=== PATIENT | male | born 1965 | race Caucasian/White ===

== ENCOUNTER 2016-11-06 19:56 | Emergency (ER) | payer MEDICARE, OTHER ==
[~2016-11-06 19:56] MED LIST: PATIENT'S OWN MEDICATION PO; depakote PO
--- NOTE | 2016-11-06 20:48 | DIAGNOSTIC IMAGING REPORT ---
PROCEDURE: XR ANKLE 3 OR 4 VIEWS - RIGHT INDICATION: TRAUMA/INJURY TECHNIQUE: Four views. COMPARISON: None. FINDINGS: There is marked soft tissue swelling over the lateral malleolus. There is a 5 mm old avulsion fracture of the medial malleolus. The rest of the osseous structures and joint spaces are normal. IMPRESSION: 1. Marked soft tissue swelling/injury over the lateral malleolus. 2. Otherwise negative right ankle.
--- NOTE | 2016-11-06 21:51 | ED NURSING NOTES ---
Clinical Report - Nurses [address] [place] [address] 11/06/2016 19:57 [id number] Triage time 19:59. Acuity: LEVEL 4. Chief Complaint: INJURY TO RIGHT ANKLE. Alert. HANNAH COMA SCORE: Hannah Coma Scale: 15- eyes open spontaneously (4); best verbal response- oriented x 4 (5); best motor response- obeys commands (6). --20:05 Jean Arguelles R.N. 19:59 11/06/16. BP: 105/70. HR: 70. RR: 18 (regular and unlabored). O2 saturation: 100% on room air. Temp: 97.8 F. Collins-Corrigan pain scale: 4/10. --20:05 Jean Arguelles R.N. Weight: 90.7 kg estimated. Height/Length: 70 inches Estimated. BMI: 28.7. --20:08 Jean Arguelles R.N. Medications Acetaminophen Oral 325 mg, as needed. Alendronate Sodium Oral (Tablet 35 mg), weekly. ASA Oral 81 mg, daily. B-12 Microlozenge Sublingual 5000 mcg, daily. Calcium Chew 500 mg, 4x a day. ClonazePAM Oral 0.5 mg, daily (may have prn seizures activity). --20:00 Jean Arguelles R.N. Divalproex Sodium Oral (Tablet Delayed Release 125 mg) 2 tablets, daily. Keppra Oral 500 mg, daily (5 tabs). L-methylfolate Calcium Oral (Tablet 7.5 mg), daily. Lactase Fast Acting Oral (Tablet 9000 unit), with dairy. LaMICtal Oral (Tablet 100 mg) 2 tablets, daily. Loratadine Oral 10 mg, daily. Mapap Oral (Tablet 325 mg), as needed. Metamucil Oral fiber wafers 2, daily. Onfi Oral (Tablet 10 mg) 30 mg, bid. Oyster Shell Calcium Oral (Tablet 500 mg), tid. Vitamin D Oral (Tablet 1000 unit) 2 tablets, daily. Vitamins/Minerals Oral, daily. --20:00 Jean Arguelles R.N. Medication/allergy information source: other (Medication list from previous visit--no other source availible at time of triage, patient poor historian). --20:05 Jean Arguelles R.N. Allergies No Known Drug Allergy. --20:00 Jean Arguelles R.N. History Arrived by EMS. Historian: (EMS and PT). Unaccompanied. This occurred just prior to arrival. Occurred at home. Mechanism of injury: sustained a twisting injury. SOCIAL HX: Smoker - current status unknown. ( Patient answers questions intermittently, EMS states that patient is at baseline mental status per the patient's applied behavior specialist at scene of incident, with a developmental delay). --20:05 Jean Arguelles R.N. FALL RISK ASSESSMENT: Fall risk assessment completed. Risk factors identified include patient history of fall and impairment of cognition. Fall interventions initiated. Patient placed on stretcher. Side rails up x2. Brakes on Bed in low position. Patient identified as a fall risk by ID band. Call light in reach of patient. Instructed not to get up without assistance. FUNCTIONAL ASSESSMENT: Functional assessment performed: requires assistance with the activities of daily living. LEARNING NEEDS ASSESSMENT: A learning needs assessment was performed. Factors affecting the patient's ability to learn include cognitive limitations. --20:06 Jean Arguelles R.N. PROBLEMS: Anemia. Changed Mental Status. Seizure Disorder. Seizure. Abrasion(s). Head Injury. Osteoporosis. Developmental Delay. Epilepsy. --20:01 Jean Arguelles R.N. ADDITIONAL SURGERIES: Vagus nerve stimulator -implant . --20:01 Jean Arguelles R.N. Interventions ID band on patient. To treatment room. --20:05 Jean Arguelles R.N. PHYSICAL ASSESSMENT GENERAL / NEURO / PSYCH: Alert. ( Patient is oriented to situation and person, and states that he is in "[facility]."). EXTREMITIES: Right ankle: swelling and erythema. --20:07 Jean Arguelles R.N. GENERAL / NEURO / PSYCH: ( pt denies having other injuries). --20:07 Jean Arguelles R.N. NURSING PROGRESS NOTES Reassurance given. Two patient identifiers checked. Call light placed in reach. Side rails up x 2. Bed placed in lowest position. Brakes of bed on. Patient ready for evaluation- chart flagged. Patient waiting for evaluation. --20:08 Jean Arguelles R.N. ( Ice pack applied to patient's right ankle). --20:17 Jean Arguelles R.N. ( At time of triage, EMS stated that the patient's "caregiver is on her way."). --20:18 eJan Arguelles R.N. 22:08 11/06/2016 Hydrocodone-APAP (Hydrocodone-Acetaminophen) PO 5/325 mg Tablets 1 tab given. Allergies verified, confirmed 5 rights and sedative warning given to the patient and patient's congressional aide. --22:18 Jean Arguelles R.N. DISPOSITION / DISCHARGE Departure time: 22:19. Condition at departure: stable. Learning barriers present. Ability to learn limited by poor comprehension. Discharge instructions provided and reviewed with the caregiver and patient. Reviewed warnings. Reviewed medication(s) side effects, precautions, dosing and course information. Prescription(s) given to the applied behavior specialist. Treatments reviewed. Reviewed referrals for followup. Patient verbalized understanding. Written instructions provided in Indonesian. Caregiver verbalized understanding. The patient was discharged home and accompanied by applied behavior specialist. He left the Emergency Department in a wheelchair and via private vehicle. Driving (applied behavior specialist). --22:20 Jean Arguelles R.N. 22:18 11/06/16. HR: 68. RR: 17. O2 saturation: 95% on room air. Pain level now: 0/10. --22:20 Jean Arguelles R.N. ( acewrap applied to right ankle of patient prior to discharge). --22:20 Jean Arguelles R.N. Locked/Released at 11/06/2016 22:21 by Jean Arguelles R.N.
--- NOTE | 2016-11-06 21:51 | ED CLINICAL REPORT ---
Clinical Report - Physicians/Mid Levels [facility] [address] [place] [address] 11/06/2016 19:57 Patient: JORGE LUIS BENJAMIN Time Seen: 20:23; initial patient contact, initial documentation, patient care assumed. Arrived- By ambulance. Historian- patient. History limited by poor comprehension. HISTORY OF PRESENT ILLNESS Chief Complaint: Injury to the right ankle. The injury happened just prior to arrival. The patient sustained a twisting injury. Occurred at home. Patient is experiencing moderate pain. Patient denies injury to the head or neck. No other injury. REVIEW OF SYSTEMS The patient complains of pain on weight bearing. He has had swelling. No tingling, weakness, numbness or skin laceration. All systems otherwise negative, except as recorded above. PAST HISTORY See nurses notes. PROBLEMS: Anemia. Changed Mental Status. Seizure Disorder. Seizure. Abrasion(s). Head Injury. Osteoporosis. Developmental Delay. Epilepsy. --20:01 Jean Arguelles R.N. ADDITIONAL SURGERIES: Vagus nerve stimulator -implant . --20:01 Jean Arguelles R.N. SOCIAL HISTORY Never smoker. No alcohol use or drug use. No recent travel. Is a local resident. He lives with a caregiver. FAMILY HISTORY No significant family medical history. ADDITIONAL NOTES The nursing notes have been reviewed with agreement regarding the chief complaint, HPI, ROS, PMH and patient medications and allergies. PHYSICAL EXAM Vital Signs: 11/06/2016 19:59 BP: 105/70. HR: 70. RR: 18. O2 saturation: 100%. Temp: 97.8 F. Collins-Corrigan pain scale: 4/10. Have been reviewed as normal and appear to be correct. Appearance: Alert. Oriented X3. No acute distress. (pt at his baseline mentally, words slurred but does answer appropriately). Head: Head atraumatic. Eyes: Pupils equal, round and reactive to light. Eyes normal inspection. Neck: Normal inspection. Neck supple. C-spine non-tender. Respiratory: No respiratory distress. Skin: Skin intact. Skin warm and dry. Extremities: Ankle injury present. Right lateral ankle: moderate tenderness and swelling and small ecchymosis of the lateral malleolus. Limited ROM secondary to pain (diminished plantar flexion, dorsiflexion, inversion and eversion). Neurovascular intact distally. No ligamentous laxity present. No joint effusion. No erythema, laceration, abrasion, puncture wound or foreign body. No deformity. No foot injury. Foot and ankle exam otherwise negative. Extremities otherwise negative. Neuro, Vascular and Tendons: Vascular status intact. Sensation intact. Motor intact. Tendon function intact. Gait: Abnormal gait. Gait not tested due to pain. Neuro: Oriented X 3. No motor deficit. No sensory deficit. Note: isolated injury to ankle. LABS, X-RAYS, AND EKG X-Rays: Right ankle negative. Rt Ankle X-ray: (IMPRESSION: 1. Marked soft tissue swelling/injury over the lateral malleolus. 2. Otherwise negative right ankle. Electronically Final signed by:Shivam Barrera MD 11/06/2016 8:45:29 PM). The X-rays were interpreted by the radiologist and contemporaneously by me and discussed with the radiologist. PROGRESS AND PROCEDURES Course of Care: 2124. ankle reassessed, less swelling than on initial exam. Patient counseled in person regarding the patient's stable condition, test results and diagnosis. 21:24. Differential Diagnosis: Other possible considerations: ankle fx vs sprain. Above considerations are based on history, physical exam, reassessment and X-Ray data. Differential diagnosis was discussed with patient. Disposition: Discharged home in good and improved condition (21:50). Condition: good and stable. CLINICAL IMPRESSION Sprain of the tibiofibular ligament of the right ankle. INSTRUCTIONS Apply ice for 20 minutes four times a day for two days until better. Don't apply ice directly to skin. Wear elastic wrap (Gilmer wrap) as directed for one weeks until better. Elevate affected areas above chest level for two days until better. Warnings: GENERAL WARNINGS: Return or contact your physician immediately if your condition worsens or changes unexpectedly, if not improving as expected, or if other problems arise. Specifically return if problem worsens. Prescription Medications: Ultram 50 mg tablets: take 1-2 orally every 6 hours as needed for pain. Dispense twenty (20). No refills. Substitution is permissible. Follow-up: Follow up with your doctor in about one week even if well. Call for an appointment. Summary of care provided to patient and family. Understanding of the discharge instructions verbalized by patient and family. (Electronically signed by Eleanor Canchola A.R.N.P. 11/07/2016 12:58)
--- NOTE | 2016-11-06 21:51 | ED ORDER SUMMARY ---
..... Patient: JORGE LUIS BENJAMIN OrderSheet [facility] VisitID: [id number] [address] [place] [address] 51y, M Registration Date/Time: 11/06/2016 ORDER SHEET Weight: 90.7 kg (estimated) Allergies: No Known Drug Allergy GENERAL ORDERS: Ankle 3 or 4V Right Urgent (20:28 11/06/2016 HBivens A.R.N.P.) (Ack 20:33 IJurca ER Tech1) (20:39 IJurca ER Tech1) Gilmer Wrap (21:50 11/06/2016 HBivens A.R.N.P.) (Ack 21:56 DDavis R.N.) (22:18 DDavis R.N.) MEDICATION ORDERS: Hydrocodone-APAP PO 5/325 mg (NOW, HIGH ALERT MEDICATION) (21:50 11/06/2016 HBivens A.R.N.P.) (Ack 21:57 DDavis R.N.) (22:18 DDavis R.N.) IV FLUIDS: ORDER SHEET NOTES: [Electronically signed by Jean Arguelles R.N. (22:21 11/06/2016)] [Electronically signed by Eleanor CancholaRSharonN.PSharon (12:58 11/07/2016)] [Electronically locked/signed by Jean Arguelles R.N. (22:21 11/06/2016)]
--- NOTE | 2016-11-06 21:51 | ED ORDER SUMMARY ---
..... Patient: JORGE LUIS BENJAMIN OrderSheet [facility] VisitID: [id number] [address] [place] [address] 51y, M Registration Date/Time: 11/06/2016 ORDER SHEET Weight: 90.7 kg (estimated) Allergies: No Known Drug Allergy GENERAL ORDERS: Ankle 3 or 4V Right Urgent (20:28 11/06/2016 HBivens A.R.N.P.) (Ack 20:33 IJurca ER Tech1) (20:39 IJurca ER Tech1) Gilmer Wrap (21:50 11/06/2016 HBivens A.R.N.P.) (Ack 21:56 DDavis R.N.) (22:18 DDavis R.N.) MEDICATION ORDERS: Hydrocodone-APAP PO 5/325 mg (NOW, HIGH ALERT MEDICATION) (21:50 11/06/2016 HBivens A.R.N.P.) (Ack 21:57 DDavis R.N.) (22:18 DDavis R.N.) IV FLUIDS: ORDER SHEET NOTES: [Electronically signed by Jean Arguelles R.N. (22:21 11/06/2016)] [Electronically signed by Eleanor CancholaRSharonN.PSharon (12:58 11/07/2016)] [Electronically locked/signed by Jean Arguelles R.N. (22:21 11/06/2016)]
--- NOTE | 2016-11-06 21:51 | ED NURSING NOTES ---
Clinical Report - Nurses [facility] [address] [place] [address] 11/06/2016 19:57 [id number] Triage time 19:59. Acuity: LEVEL 4. Chief Complaint: INJURY TO RIGHT ANKLE. Alert. HANNAH COMA SCORE: Hannah Coma Scale: 15- eyes open spontaneously (4); best verbal response- oriented x 4 (5); best motor response- obeys commands (6). --20:05 Jean Arguelles R.N. 19:59 11/06/16. BP: 105/70. HR: 70. RR: 18 (regular and unlabored). O2 saturation: 100% on room air. Temp: 97.8 F. Collins-Corrigan pain scale: 4/10. --20:05 Jean Arguelles R.N. Weight: 90.7 kg estimated. Height/Length: 70 inches Estimated. BMI: 28.7. --20:08 Jean Arguelles R.N. Medications Acetaminophen Oral 325 mg, as needed. Alendronate Sodium Oral (Tablet 35 mg), weekly. ASA Oral 81 mg, daily. B-12 Microlozenge Sublingual 5000 mcg, daily. Calcium Chew 500 mg, 4x a day. ClonazePAM Oral 0.5 mg, daily (may have prn seizures activity). --20:00 Jean Arguelles R.N. Divalproex Sodium Oral (Tablet Delayed Release 125 mg) 2 tablets, daily. Keppra Oral 500 mg, daily (5 tabs). L-methylfolate Calcium Oral (Tablet 7.5 mg), daily. Lactase Fast Acting Oral (Tablet 9000 unit), with dairy. LaMICtal Oral (Tablet 100 mg) 2 tablets, daily. Loratadine Oral 10 mg, daily. Mapap Oral (Tablet 325 mg), as needed. Metamucil Oral fiber wafers 2, daily. Onfi Oral (Tablet 10 mg) 30 mg, bid. Oyster Shell Calcium Oral (Tablet 500 mg), tid. Vitamin D Oral (Tablet 1000 unit) 2 tablets, daily. Vitamins/Minerals Oral, daily. --20:00 Jean Arguelles R.N. Medication/allergy information source: other (Medication list from previous visit--no other source availible at time of triage, patient poor historian). --20:05 Jean Arguelles R.N. Allergies No Known Drug Allergy. --20:00 Jean Arguelles R.N. History Arrived by EMS. Historian: (EMS and PT). Unaccompanied. This occurred just prior to arrival. Occurred at home. Mechanism of injury: sustained a twisting injury. SOCIAL HX: Smoker - current status unknown. ( Patient answers questions intermittently, EMS states that patient is at baseline mental status per the patient's hot saw helper at scene of incident, with a developmental delay). --20:05 Jean Arguelles R.N. FALL RISK ASSESSMENT: Fall risk assessment completed. Risk factors identified include patient history of fall and impairment of cognition. Fall interventions initiated. Patient placed on stretcher. Side rails up x2. Brakes on Bed in low position. Patient identified as a fall risk by ID band. Call light in reach of patient. Instructed not to get up without assistance. FUNCTIONAL ASSESSMENT: Functional assessment performed: requires assistance with the activities of daily living. LEARNING NEEDS ASSESSMENT: A learning needs assessment was performed. Factors affecting the patient's ability to learn include cognitive limitations. --20:06 Jean Arguelles R.N. PROBLEMS: Anemia. Changed Mental Status. Seizure Disorder. Seizure. Abrasion(s). Head Injury. Osteoporosis. Developmental Delay. Epilepsy. --20:01 Jean Arguelles R.N. ADDITIONAL SURGERIES: Vagus nerve stimulator -implant . --20:01 Jean Arguelles R.N. Interventions ID band on patient. To treatment room. --20:05 Jean Arguelles R.N. PHYSICAL ASSESSMENT GENERAL / NEURO / PSYCH: Alert. ( Patient is oriented to situation and person, and states that he is in "[facility]."). EXTREMITIES: Right ankle: swelling and erythema. --20:07 Jean Arguelles R.N. GENERAL / NEURO / PSYCH: ( pt denies having other injuries). --20:07 Jean Arguelles R.N. NURSING PROGRESS NOTES Reassurance given. Two patient identifiers checked. Call light placed in reach. Side rails up x 2. Bed placed in lowest position. Brakes of bed on. Patient ready for evaluation- chart flagged. Patient waiting for evaluation. --20:08 Jean Arguelles R.N. ( Ice pack applied to patient's right ankle). --20:17 Jean Arguelles R.N. ( At time of triage, EMS stated that the patient's "caregiver is on her way."). --20:18 Jean Arguelles R.N. 22:08 11/06/2016 Hydrocodone-APAP (Hydrocodone-Acetaminophen) PO 5/325 mg Tablets 1 tab given. Allergies verified, confirmed 5 rights and sedative warning given to the patient and patient's fund accountant. --22:18 Jean Arguelles R.N. DISPOSITION / DISCHARGE Departure time: 22:19. Condition at departure: stable. Learning barriers present. Ability to learn limited by poor comprehension. Discharge instructions provided and reviewed with the caregiver and patient. Reviewed warnings. Reviewed medication(s) side effects, precautions, dosing and course information. Prescription(s) given to the hot saw helper. Treatments reviewed. Reviewed referrals for followup. Patient verbalized understanding. Written instructions provided in Indonesian. Caregiver verbalized understanding. The patient was discharged home and accompanied by hot saw helper. He left the Emergency Department in a wheelchair and via private vehicle. Driving (hot saw helper). --22:20 Jean Arguelles R.N. 22:18 11/06/16. HR: 68. RR: 17. O2 saturation: 95% on room air. Pain level now: 0/10. --22:20 Jean Arguelles R.N. ( acewrap applied to right ankle of patient prior to discharge). --22:20 Jean Arguelles R.N. Locked/Released at 11/06/2016 22:21 by Jean Arguelles R.N.
--- NOTE | 2016-11-07 12:59 | ED DISCHARGE INSTRUCTIONS ---
Patient: JORGE LUIS BENJAMIN General Instructions [facility] VisitID: [id number] [address] [place] [address] 51y, M Registration Date/Time: 11/06/2016 Sprain of the tibiofibular ligament of the right ankle. INSTRUCTIONS Apply ice for 20 minutes four times a day for two days until better. Don't apply ice directly to skin. Wear elastic wrap (Gilmer wrap) as directed for one weeks until better. Elevate affected areas above chest level for two days until better. Warnings: GENERAL WARNINGS: Return or contact your physician immediately if your condition worsens or changes unexpectedly, if not improving as expected, or if other problems arise. Specifically return if problem worsens. Prescription Medications: Ultram 50 mg tablets: take 1-2 orally every 6 hours as needed for pain. Dispense twenty (20). No refills. Substitution is permissible. Follow-up: Follow up with your doctor in about one week even if well. Call for an appointment. Summary of care provided to patient and family. Understanding of the discharge instructions verbalized by patient and family. ADDITIONAL INFORMATION Sprain, Ankle,With X-Ray A sprain is an injury to the ligaments or capsule that holds a joint together. There are no broken bones. Most sprains take from four to six weeks to heal. If the ligament is completely torn (severe sprain), it can take several months to recover. Mild to moderate sprains may be treated with an elastic wrap or an in-shoe splint to provide support and prevent re-injury. A mild sprain may not require any additional support. A severe sprain may require surgery to repair. Home care The following guidelines will help you care for your injury at home: Stay off the injured leg as much as possible until you can walk on it without pain. If you have a lot of pain with walking, crutches or a walker may be prescribed. (These can be rented or purchased at many pharmacies and surgical or orthopedic supply stores). Follow your doctor's advice regarding when to begin bearing weight on that leg. Keep your leg elevated to reduce pain and swelling. When sleeping, place a pillow under the injured leg. When sitting, support the injured leg so it is level with your waist. This is very important during the first 48 hours. Apply an ice pack (ice cubes in a plastic bag, wrapped in a towel) over the injured area for 20 minutes every 12 hours the first day. You can place the ice pack directly over the splint/cast. If you were given a boot, open it to apply the ice pack. Continue with ice packs 34 times a day for the next two days, then as needed for the relief of pain and swelling. You may use acetaminophen or ibuprofen to control pain, unless another pain medicine was prescribed. If you have chronic liver or kidney disease or ever had a stomach ulcer or GI bleeding, talk with your doctor before using these medicines. You may return to sports after healing, when you can run without pain. A sprained ankle is at risk for re-injury during the first six weeks. During that time, protect your ankle with an in-shoe splint that prevents tilting of your ankle from side to side. This is very important if you do active work or play sports during that time. Follow-up care Any X-rays you had today dont show any broken bones, breaks, or fractures. Sometimes fractures dont show up on the first X-ray. Bruises and sprains can sometimes hurt as much as a fracture. These injuries can take time to heal completely. If your symptoms dont improve or they get worse, talk with your doctor. You may need a repeat X-ray. When to seek medical care Get prompt medical attention if any of the following occur: The plaster cast or splint gets wet or soft The fiberglass cast or splint gets wet and does not dry for 24 hours Pain or swelling increases, or redness appears Toes become cold, blue, numb or tingly Re-injure your ankle Gilmer Wrap An "Gilmer Bandage" refers to any elastic bandage wrap (2-6" wide). This is used to apply support and compression to an arm or leg. It will help prevent or reduce swelling also. When applying the bandage, it should not be stretched too tightly. A tight Gilmer Wrap will reduce circulation and cause tingling or numbness in the hand or foot. It may increase the pain under the bandage. If you get these symptoms, remove the wrap and rest the limb. Symptoms should go away within 1-2 hours. Once symptoms go away, reapply the bandage with less stretch. If symptoms do not go away after 1-2 hours with the bandage off, call your doctor or return to this facility promptly. Tramadol Hydrochloride Oral tablet What is this medicine? TRAMADOL (TRA ma dole) is a pain reliever. It is used to treat moderate to severe pain in adults. How should I use this medicine? Take this medicine by mouth with a full glass of water. Follow the directions on the prescription label. If the medicine upsets your stomach, take it with food or milk. Do not take more medicine than you are told to take. Talk to your cross tie tram loader regarding the use of this medicine in children. Special care may be needed. What side effects may I notice from receiving this medicine? Side effects that you should report to your doctor or health technical healthcare consultant as soon as possible: allergic reactions like skin rash, itching or hives, swelling of the face, lips, or tongue breathing difficulties, wheezing confusion itching light headedness or fainting spells redness, blistering, peeling or loosening of the skin, including inside the mouth seizures Side effects that usually do not require medical attention (report to your doctor or health technical healthcare consultant if they continue or are bothersome): constipation dizziness drowsiness headache nausea, vomiting What may interact with this medicine? Do not take this medicine with any of the following medications: MAOIs like Carbex, Eldepryl, Marplan, Nardil, and Parnate This medicine may also interact with the following medications: alcohol or medicines that contain alcohol antihistamines benzodiazepines bupropion carbamazepine or oxcarbazepine clozapine cyclobenzaprine digoxin furazolidone linezolid medicines for depression, anxiety, or psychotic disturbances medicines for migraine headache like almotriptan, eletriptan, frovatriptan, naratriptan, rizatriptan, sumatriptan, zolmitriptan medicines for pain like pentazocine, buprenorphine, butorphanol, meperidine, nalbuphine, and propoxyphene medicines for sleep muscle relaxants naltrexone phenobarbital phenothiazines like perphenazine, thioridazine, chlorpromazine, mesoridazine, fluphenazine, prochlorperazine, promazine, and trifluoperazine procarbazine warfarin What if I miss a dose? If you miss a dose, take it as soon as you can. If it is almost time for your next dose, take only that dose. Do not take double or extra doses. Where should I keep my medicine? Keep out of the reach of children. Store at room temperature between 15 and 30 degrees C (59 and 86 degrees F). Keep container tightly closed. Throw away any unused medicine after the expiration date. What should I tell my health care provider before I take this medicine? They need to know if you have any of these conditions: brain tumor depression drug abuse or addiction head injury if you frequently drink alcohol containing drinks kidney disease or trouble passing urine liver disease lung disease, asthma, or breathing problems seizures or epilepsy suicidal thoughts, plans, or attempt; a previous suicide attempt by you or a family member an unusual or allergic reaction to tramadol, codeine, other medicines, foods, dyes, or preservatives or trying to get breast-feeding What should I watch for while using this medicine? Tell your doctor or health technical healthcare consultant if your pain does not go away, if it gets worse, or if you have new or a different type of pain. You may develop tolerance to the medicine. Tolerance means that you will need a higher dose of the medicine for pain relief. Tolerance is normal and is expected if you take this medicine for a long time. Do not suddenly stop taking your medicine because you may develop a severe reaction. Your body becomes used to the medicine. This does NOT mean you are addicted. Addiction is a behavior related to getting and using a drug for a non-medical reason. If you have pain, you have a medical reason to take pain medicine. Your doctor will tell you how much medicine to take. If your doctor wants you to stop the medicine, the dose will be slowly lowered over time to avoid any side effects. You may get drowsy or dizzy. Do not drive, use machinery, or do anything that needs mental alertness until you know how this medicine affects you. Do not stand or sit up quickly, especially if you are an older patient. This reduces the risk of dizzy or fainting spells. Alcohol can increase or decrease the effects of this medicine. Avoid alcoholic drinks. You may have constipation. Try to have a bowel movement at least every 2 to 3 days. If you do not have a bowel movement for 3 days, call your doctor or health technical healthcare consultant. Your mouth may get dry. Chewing sugarless gum or sucking hard candy, and drinking plenty of water may help. Contact your doctor if the problem does not go away or is severe. You have been given the following additional information: Sprain, Ankle, With X-Ray Gilmer Wrap Tramadol Hydrochloride Oral tablet (Electronically signed by Eleanor Canchola A.R.N.P. 11/07/2016 12:58)
--- NOTE | 2016-11-07 13:00 | ED MED RECONCILIATION SUMMARY ---
Patient: JORGE LUIS BENJAMIN Medication Reconciliation Report [facility] VisitID: [id number] [address] [place] [address] 51y, M Registration Date/Time: 11/06/2016 Weight: 90.7 kg Height/Length: 70 in. BMI: 28.7 ALLERGIES: No Known Drug Allergy The patient's Home Medications are listed below: THE FOLLOWING MEDICATIONS NEED TO BE RECONCILED: Acetaminophen Oral 325 mg Alendronate Sodium Oral (35 mg), weekly ASA Oral 81 mg, daily B-12 Microlozenge Sublingual 5000 mcg, daily Calcium Chew 500 mg, 4x a day ClonazePAM Oral 0.5 mg, daily, may have prn seizures activity Divalproex Sodium Oral (125 mg) 2 tablets, daily Keppra Oral 500 mg, daily, 5 tabs L-methylfolate Calcium Oral (7.5 mg), daily Lactase Fast Acting Oral (9000 unit), with dairy LaMICtal Oral (100 mg) 2 tablets, daily Loratadine Oral 10 mg, daily Mapap Oral (325 mg) Metamucil Oral fiber wafers 2, daily Onfi Oral (10 mg) 30 mg, bid Oyster Shell Calcium Oral (500 mg), tid Vitamin D Oral (1000 unit) 2 tablets, daily Vitamins/Minerals Oral, daily The source(s) of the original Home Medication information: other Medication list from previous visit--no other source availible at time of triage, patient poor historian The following Medications were given to the patient in the Emergency Department: Hydrocodone-APAP [PO] PO 1 tab, administered: 11/06/2016 10:08:00 PM The following Medications were prescribed to the patient: Ultram 50 mg tablets: take 1-2 orally every 6 hours as needed for pain. Dispense twenty (20). No refills. Substitution is permissible. -- Eleanor Canchola A.R.N.P.
--- NOTE | 2016-11-07 13:00 | ED MED RECONCILIATION SUMMARY ---
Patient: JORGE LUIS BENJAMIN Medication Reconciliation Report [facility] VisitID: [id number] [address] [place] [address] 51y, M Registration Date/Time: 11/06/2016 Weight: 90.7 kg Height/Length: 70 in. BMI: 28.7 ALLERGIES: No Known Drug Allergy The patient's Home Medications are listed below: THE FOLLOWING MEDICATIONS NEED TO BE RECONCILED: Acetaminophen Oral 325 mg Alendronate Sodium Oral (35 mg), weekly ASA Oral 81 mg, daily B-12 Microlozenge Sublingual 5000 mcg, daily Calcium Chew 500 mg, 4x a day ClonazePAM Oral 0.5 mg, daily, may have prn seizures activity Divalproex Sodium Oral (125 mg) 2 tablets, daily Keppra Oral 500 mg, daily, 5 tabs L-methylfolate Calcium Oral (7.5 mg), daily Lactase Fast Acting Oral (9000 unit), with dairy LaMICtal Oral (100 mg) 2 tablets, daily Loratadine Oral 10 mg, daily Mapap Oral (325 mg) Metamucil Oral fiber wafers 2, daily Onfi Oral (10 mg) 30 mg, bid Oyster Shell Calcium Oral (500 mg), tid Vitamin D Oral (1000 unit) 2 tablets, daily Vitamins/Minerals Oral, daily The source(s) of the original Home Medication information: other Medication list from previous visit--no other source availible at time of triage, patient poor historian The following Medications were given to the patient in the Emergency Department: Hydrocodone-APAP [PO] PO 1 tab, administered: 11/06/2016 10:08:00 PM The following Medications were prescribed to the patient: Ultram 50 mg tablets: take 1-2 orally every 6 hours as needed for pain. Dispense twenty (20). No refills. Substitution is permissible. -- Eleanor Canchola A.R.N.P.
--- NOTE | 2016-11-07 13:00 | ED MAR SUMMARY ---
..... Medication Administration Record [facility] [address] [place] [address] Patient: JORGE LUIS BENJAMIN Visit ID: [id number] 51y, M Weight: 90.7 kg Height/Length: 70 in BMI: 28.7 ALLERGIES: No Known Drug Allergy Given 22:08 11/06/2016 Jean Arguelles R.N. Medication Administered: HYDROCODONE-APAP [PO] (HYDROCODONE-ACETAMINOPHEN), Dose: 1 tab 5/325 mg Tablets PO. Medication Ordered: Hydrocodone-APAP PO 5/325 mg (NOW, HIGH ALERT MEDICATION).
--- NOTE | 2016-11-07 13:00 | ED MAR SUMMARY ---
..... Medication Administration Record [facility] [address] [place] [address] Patient: JORGE LUIS BENJAMIN Visit ID: [id number] 51y, M Weight: 90.7 kg Height/Length: 70 in BMI: 28.7 ALLERGIES: No Known Drug Allergy Given 22:08 11/06/2016 Jean Arguelles R.N. Medication Administered: HYDROCODONE-APAP [PO] (HYDROCODONE-ACETAMINOPHEN), Dose: 1 tab 5/325 mg Tablets PO. Medication Ordered: Hydrocodone-APAP PO 5/325 mg (NOW, HIGH ALERT MEDICATION).
== END 2016-11-06 22:10 | disposition home or self-care (01) ==
LOC: ED SRH 19:56
DX: S93.431A Sprain of tibiofibular ligament of right ankle, initial encounter (principal); X50.0XXA Overexertion from strenuous movement or load, initial encounter; Y93.9 Activity, unspecified; Y92.009 Unspecified place in unspecified non-institutional (private) residence as the place of occurrence of the external cause; Y99.9 Unspecified external cause status; Z79.899 Other long term (current) drug therapy